=== PATIENT | female | born 1945 | race Two or more races ===

== ENCOUNTER 2016-06-03 15:00 | Inpatient (IN) | payer MEDICARE, MEDICAID ==
[~2016-06-03] VITALS: Ht 162.6 cm; Wt 94.2 kg
[2016-06-03] MEDS ORDERED: ONDANSETRON HCL 4 MG/2 ML VIAL IV ONE (15:45)
[2016-06-03] MEDS ORDERED: HYDROmorphone HCL 2 MG/ML VL IV ONE (15:45)
[2016-06-03] MEDS ORDERED: ASPirin 81 mg TAB PO ONE (15:45)
[2016-06-03 16:17] LABS: Basophils # (auto) 0 uL; Basophils % (auto) 0.5 % (0.0-2.0); DEFINITIVE VIEW TRANSMISSION; Eosinophils # (auto) 0.1 uL; Eosinophils % (auto) 1.6 % (0.0-7.0); Hemoglobin 13.3 g/dL (12.2-16.2); Lymphocytes # (auto) 1.6 uL; Lymphocytes % (auto) 20.4 % (10.0-50.0); Mean Corpuscular Hemoglobin 26.9 pg (28.0-32.0); Mean Corpuscular Hgb Conc. 32.5 g/dL (32.0-36.0); Mean Corpuscular Volume 82.7 fL (80.0-100.0); Mean Platelet Volume 9.8 fL (7.4-10.4); Monocytes # (auto) 0.3 uL; Monocytes % (auto) 3.4 % (0.0-12.0); Neutrophils # (auto) 5.7 uL; Neutrophils % (auto) 74.1 % (37.0-80.0); Platelet Count (auto) 278 10^3/uL (140-450); Red Cell Distribution Width 16.2 % (11.6-16.0); White Blood Cell 7.7 10^3/uL (4.4-10.8)
[2016-06-03 16:36] LABS: Albumin 3.9 g/dL (3.4-5.0); BUN/Creatinine Ratio 16.9; Calcium 8.5 mg/dL (8.5-10.1); Magnesium 2.2 mg/dL (1.6-2.6); Potassium 3.4 mmol/L (3.5-5.1)
[2016-06-03 16:38] LABS: Bilirubin, Total 0.5 mg/dL (0.2-1.0); Total Protein 7.4 g/dL (6.4-8.2)
[2016-06-03 17:02] LABS: B-Type Natriuretic Peptide 16.23 pg/mL (0-100)
[2016-06-03 17:04] LABS: Temperature: 21.1 C (20.0-25.0)
[2016-06-03 19:06] LABS: Platelet Estimate Adequate; RBC Morphology Normal
[2016-06-03] MEDS ORDERED: LORazepam 0.5 MG TAB PO PRN (19:15)
[2016-06-03] MEDS ORDERED: NITROGLYCERIN 0.4 MG SL TAB SL PRN (19:15)
[2016-06-03] MEDS ORDERED: POTASSIUM CHL 20 Meq TABLET PO ONE (19:15)
[2016-06-03] MEDS ORDERED: LACTULOSE 20Gm/30ML SOLN PO PRN (19:15)
[2016-06-03] MEDS: NITROGLYCERIN 0.2MG/HR TOPICAL PATCH TD SCH (19:50)
[2016-06-03] MEDS: ENOXAPARIN SOD 40 MG/0.4 ML SYRINGE SC SCH (19:50)
[2016-06-03 20:07] LABS: Temperature: 21.9 C (20.0-25.0)
[2016-06-03] MEDS: SODIUM CHLORIDE 0.9% 1,000 ML IV SCH (20:22)
[2016-06-03] MEDS: HYDROmorphone HCL 2 MG/ML VL IV PRN (20:22)
[2016-06-03] MEDS: PROMETHAZINE HCL 25 MG/ML 1ML IV PRN (20:22)
[2016-06-03 20:45] VITALS: BP 188/72
[2016-06-03] MEDS ORDERED: LEVO25TA6 PO (21:26)
[2016-06-03] MEDS ORDERED: LEVO200T46 PO (21:26)
[2016-06-03] MEDS ORDERED: ENAL5TAB92 PO (21:26)
[2016-06-03] MEDS ORDERED: PROM25TA5 PO (21:26)
[2016-06-03] MEDS ORDERED: TEMA15CA91 PO (21:26)
[2016-06-03] MEDS ORDERED: DULO60CA PO (21:26)
[2016-06-03] MEDS ORDERED: CARV6.2551 PO (21:26)
[2016-06-03] MEDS ORDERED: PANT40TA2 PO (21:26)
[2016-06-03] MEDS ORDERED: ATOR40TA52 PO (21:26)
[2016-06-03] MEDS: TEMAZEPAM 15 MG CAP PO PRN (21:50)
[2016-06-03] MEDS: METOPROLOL TARTRATE 25 MG TAB PO SCH (21:51)
[2016-06-03 22:00] VITALS: BP 188/72
[2016-06-03] MEDS ORDERED: ATORVASTATIN 20 MG TAB PO SCH (22:00)
[2016-06-04] VITALS (7 sets, daily range): BP systolic 144–168; BP diastolic 55–86
[2016-06-04] MEDS: HYDROmorphone HCL 2 MG/ML VL IV PRN ×6 (00:55→22:00)
[2016-06-04] MEDS: PROMETHAZINE HCL 25 MG/ML 1ML IV PRN ×6 (00:56→22:00)
[2016-06-04 06:22] LABS: Urine Bilirubin Negative (Negative); Urine Blood 2+ /uL (Negative); Urine Color Yellow (Yellow); Urine Glucose Normal (Normal); Urine Ketone TRACE (Negative); Urine Mucus FEW (None Seen); Urine Nitrite Negative (Negative); Urine RBC 27 /hpf (0 - 4); Urine Squamous Epithelial Cell MOD /hpf (<5)
[2016-06-04 06:41] LABS: Cholesterol 149 mg/dL (<200); HDL Cholesterol 43 mg/dL (40-59); LDL Cholesterol 85 mg/dL (<100); Triglycerides 227 mg/dL (<150)
[2016-06-04] MEDS ORDERED: LORazepam 2MG/ML-1ML VIAL IV PRN (09:00)
[2016-06-04] MEDS: SODIUM CHLORIDE 0.9% 1,000 ML IV SCH ×2 (09:13→21:31)
[2016-06-04] MEDS: ENOXAPARIN SOD 40 MG/0.4 ML SYRINGE SC SCH (09:29)
[2016-06-04] MEDS: NITROGLYCERIN 0.2MG/HR TOPICAL PATCH TD SCH (09:30)
[2016-06-04] MEDS: ASPirin 81 mg TAB PO SCH (09:30)
[2016-06-04] MEDS: METOPROLOL TARTRATE 25 MG TAB PO SCH (09:32)
[2016-06-04] MEDS ORDERED: ENALAPRIL MALEATE 10 MG TAB PO SCH (10:00)
[2016-06-04] MEDS ORDERED: NITROFURANTOIN (MONO) 100 mg CAP PO ONE (16:00)
[2016-06-04] MEDS: PANTOPRAZOLE 40 MG TAB PO SCH (16:35)
[2016-06-04] MEDS: ATORVASTATIN 20 MG TAB PO SCH (21:29)
[2016-06-04] MEDS: TEMAZEPAM 15 MG CAP PO PRN (21:29)
[2016-06-04] MEDS: NITROFURANTOIN (MONO) 100 mg CAP PO SCH (21:30)
[2016-06-04] MEDS: DULoxetine HCL 30 MG CAP PO SCH (21:30)
[2016-06-04] MEDS ORDERED: CARVEDILOL 3.125 MG TAB PO SCH (22:00)
[2016-06-04] MEDS ORDERED: PATIENTS OWN MEDICATION (Carvedilol 1 TAB) PO SCH ×2 (22:00)
[2016-06-04] MEDS ORDERED: PATIENTS OWN MEDICATION (Duloxetine Hcl (Cymbalta) 30 MG) PO SCH (22:00)
[2016-06-05] MEDS: ACETAMINOPHEN 500 MG TAB PO PRN ×2 (00:49→14:15)
[2016-06-05] MEDS: LABETALOL HCL 5 MG/ML 4ML SYRINGE IV PRN ×3 (04:04→14:05)
[2016-06-05] MEDS: HYDROmorphone HCL 2 MG/ML VL IV PRN ×5 (04:04→23:30)
[2016-06-05] MEDS: PROMETHAZINE HCL 25 MG/ML 1ML IV PRN ×5 (04:04→23:30)
[2016-06-05 05:00] VITALS: BP 137/76
[2016-06-05] MEDS: LEVOTHYROXINE SODIUM 100 MCG TAB PO SCH (05:57)
[2016-06-05] MEDS ORDERED: PATIENTS OWN MEDICATION (Levothyroxine Sodium (Synthroid) 1 TAB) PO SCH (10:00)
[2016-06-05] MEDS ORDERED: PATIENTS OWN MEDICATION (Atorvastatin Calcium 1 TAB) PO SCH ×2 (10:00)
[2016-06-05] MEDS ORDERED: PATIENTS OWN MEDICATION (Enalapril Maleate 1 TAB) PO SCH (10:00)
[2016-06-05] MEDS: SODIUM CHLORIDE 0.9% 1,000 ML IV SCH (11:13)
[2016-06-05] MEDS ORDERED: ENALAPRIL MALEATE 10 MG TAB PO ONE (12:15)
[2016-06-05] MEDS ORDERED: ENALAPRILAT 1.25 MG/ML-1ML VIAL IV PRN (12:15)
[2016-06-05 13:41] VITALS: BP 199/89
[2016-06-05] MEDS: ENOXAPARIN SOD 40 MG/0.4 ML SYRINGE SC SCH (14:05)
[2016-06-05] MEDS: NITROFURANTOIN (MONO) 100 mg CAP PO SCH ×2 (14:06→21:38)
[2016-06-05] MEDS: PANTOPRAZOLE 40 MG TAB PO SCH (14:06)
[2016-06-05] MEDS: ASPirin 81 mg TAB PO SCH (14:06)
[2016-06-05] MEDS: DULoxetine HCL 30 MG CAP PO SCH ×2 (14:06→21:37)
[2016-06-05] MEDS: METOPROLOL SUCCINATE XL 50 MG TAB PO SCH (14:06)
[2016-06-05] MEDS: ENALAPRIL MALEATE 10 MG TAB PO SCH ×2 (16:30→21:47)
[2016-06-05 17:03] VITALS: BP 192/97
[2016-06-05] MEDS: ATORVASTATIN 20 MG TAB PO SCH (21:38)
[2016-06-05] MEDS: TEMAZEPAM 15 MG CAP PO PRN (21:39)
[2016-06-05 22:00] VITALS: BP 178/70
[2016-06-06] MEDS: SODIUM CHLORIDE 0.9% 1,000 ML IV SCH ×2 (00:29→09:44)
[2016-06-06 01:00] VITALS: BP 158/93
[2016-06-06] MEDS: LABETALOL HCL 5 MG/ML 4ML SYRINGE IV PRN ×2 (01:11→16:32)
[2016-06-06 04:30] VITALS: BP 147/78
[2016-06-06] MEDS: HYDROmorphone HCL 2 MG/ML VL IV PRN ×4 (05:02→19:59)
[2016-06-06] MEDS: PROMETHAZINE HCL 25 MG/ML 1ML IV PRN ×4 (05:02→19:58)
[2016-06-06] MEDS: LEVOTHYROXINE SODIUM 100 MCG TAB PO SCH (06:24)
[2016-06-06 09:15] VITALS: BP 141/82
[2016-06-06] MEDS: ENALAPRIL MALEATE 10 MG TAB PO SCH ×2 (09:42→21:34)
[2016-06-06] MEDS: DULoxetine HCL 30 MG CAP PO SCH ×2 (09:42→21:33)
[2016-06-06] MEDS: ENOXAPARIN SOD 40 MG/0.4 ML SYRINGE SC SCH (09:43)
[2016-06-06] MEDS: NITROFURANTOIN (MONO) 100 mg CAP PO SCH ×2 (09:43→21:33)
[2016-06-06] MEDS: PANTOPRAZOLE 40 MG TAB PO SCH (09:43)
[2016-06-06] MEDS: ASPirin 81 mg TAB PO SCH (09:43)
[2016-06-06] MEDS: METOPROLOL SUCCINATE XL 50 MG TAB PO SCH (09:43)
[2016-06-06 13:24] VITALS: BP 147/63
[2016-06-06 16:32] VITALS: BP 159/105
[2016-06-06] MEDS: DEXAMETHASONE INJECTION 10 MG in D5W 5% 50 ML IV SCH (19:58)
[2016-06-06] MEDS: ATORVASTATIN 20 MG TAB PO SCH (21:33)
[2016-06-06] MEDS: METOCLOPRAMIDE HCL 10 MG TAB PO SCH (21:34)
[2016-06-06 22:00] VITALS: BP 150/83
[2016-06-07] MEDS: HYDROmorphone HCL 2 MG/ML VL IV PRN ×3 (00:01→20:32)
[2016-06-07] MEDS: PROMETHAZINE HCL 25 MG/ML 1ML IV PRN (00:10)
[2016-06-07] MEDS: SODIUM CHLORIDE 0.9% 1,000 ML IV SCH ×2 (03:01→17:35)
[2016-06-07 05:48] VITALS: BP 121/69
[2016-06-07] MEDS: LEVOTHYROXINE SODIUM 100 MCG TAB PO SCH (06:24)
[2016-06-07] MEDS: METOCLOPRAMIDE HCL 10 MG TAB PO SCH ×4 (06:24→21:53)
[2016-06-07 08:28] VITALS: BP 137/69
[2016-06-07] MEDS: ADENOSINE 80 MG in GIVE UN-DILUTED 0 ML IV ONE (08:45)
[2016-06-07] MEDS: ENALAPRIL MALEATE 10 MG TAB PO SCH ×2 (09:08→21:53)
[2016-06-07] MEDS: DULoxetine HCL 30 MG CAP PO SCH ×2 (09:08→21:52)
[2016-06-07] MEDS: NITROFURANTOIN (MONO) 100 mg CAP PO SCH ×2 (09:08→21:52)
[2016-06-07] MEDS: PANTOPRAZOLE 40 MG TAB PO SCH ×2 (09:08→21:53)
[2016-06-07] MEDS: METOPROLOL SUCCINATE XL 50 MG TAB PO SCH (09:08)
[2016-06-07] MEDS: ASPirin 81 mg TAB PO SCH (09:08)
[2016-06-07] MEDS: ENOXAPARIN SOD 40 MG/0.4 ML SYRINGE SC SCH (10:00)
[2016-06-07] MEDS: ACETAMINOPHEN 500 MG TAB PO PRN (12:13)
[2016-06-07 12:45] VITALS: BP 162/82
[2016-06-07] MEDS ORDERED: POTA10IN PO (13:51)
[2016-06-07] MEDS ORDERED: GABA300C8 PO (13:51)
[2016-06-07] MEDS ORDERED: GLIM4TAB42 PO (13:51)
[2016-06-07] MEDS ORDERED: METO-158 PO (13:51)
[2016-06-07] MEDS ORDERED: DOXE100C4 PO (13:51)
[2016-06-07] MEDS ORDERED: FURO20TA3 PO (13:51)
[2016-06-07] MEDS ORDERED: [UNRECOGNIZED DRUG - CODE] PO (13:51)
[2016-06-07] MEDS ORDERED: GEMF600T3 PO (13:51)
[2016-06-07] MEDS ORDERED: INDO50CA82 PO (13:51)
[2016-06-07] MEDS ORDERED: METF-316 PO (13:51)
[2016-06-07] MEDS ORDERED: CANA100T PO (13:51)
[2016-06-07] MEDS ORDERED: [UNRECOGNIZED DRUG - CODE] NAS (13:51)
[2016-06-07] MEDS ORDERED: FAMOTIDINE 20 MG TAB PO ONE (15:30)
[2016-06-07] MEDS ORDERED: PANTOPRAZOLE 40 MG TAB PO ONE (15:30)
[2016-06-07] MEDS ORDERED: ALUM & MAG HYDROX-SIMETH LIQ(MAALOX) 30 ML PO PRN (15:30)
[2016-06-07 16:59] VITALS: BP 167/97
[2016-06-07] MEDS: HYDROcodone-ACET 5/325MG TAB PO PRN (17:52)
[2016-06-07] MEDS: DEXAMETHASONE INJECTION 10 MG in D5W 5% 50 ML IV SCH (20:32)
[2016-06-07] MEDS: FAMOTIDINE 20 MG TAB PO SCH (21:52)
[2016-06-07] MEDS: ATORVASTATIN 20 MG TAB PO SCH (21:52)
[2016-06-07 22:00] VITALS: BP 168/85
[2016-06-07] MEDS: TEMAZEPAM 15 MG CAP PO PRN (22:01)
[2016-06-08] MEDS: PROMETHAZINE HCL 25 MG/ML 1ML IV PRN ×2 (03:08→20:54)
[2016-06-08 05:00] VITALS: BP 152/99
[2016-06-08] MEDS: LEVOTHYROXINE SODIUM 100 MCG TAB PO SCH (05:57)
[2016-06-08] MEDS: METOCLOPRAMIDE HCL 10 MG TAB PO SCH ×3 (05:57→22:13)
[2016-06-08] MEDS: SODIUM CHLORIDE 0.9% 1,000 ML IV SCH ×2 (05:58→20:42)
[2016-06-08] MEDS: HYDROmorphone HCL 2 MG/ML VL IV PRN ×3 (06:17→20:44)
[2016-06-08] MEDS: LABETALOL HCL 5 MG/ML 4ML SYRINGE IV PRN (06:17)
[2016-06-08 06:43] LABS: Basophils # (auto) 0 uL; Basophils % (auto) 0.1 % (0.0-2.0); DEFINITIVE VIEW TRANSMISSION; Eosinophils # (auto) 0 uL; Hematocrit 38.2 % (36.0-46.0); Hemoglobin 12.2 g/dL (12.2-16.2); Lymphocytes # (auto) 0.6 uL; Mean Corpuscular Hemoglobin 26.6 pg (28.0-32.0); Mean Corpuscular Volume 83.3 fL (80.0-100.0); Mean Platelet Volume 10.8 fL (7.4-10.4); Monocytes # (auto) 0 uL; Monocytes % (auto) 0.4 % (0.0-12.0); Neutrophils # (auto) 9.5 uL; Neutrophils % (auto) 93.5 % (37.0-80.0); Platelet Count (auto) 234 10^3/uL (140-450); Red Cell Distribution Width 16.2 % (11.6-16.0); White Blood Cell 10.2 10^3/uL (4.4-10.8)
[2016-06-08 07:22] LABS: Albumin 3.7 g/dL (3.4-5.0); BUN/Creatinine Ratio 21.7; Bilirubin, Total 0.5 mg/dL (0.2-1.0); Calcium 8.5 mg/dL (8.5-10.1); Potassium 3.3 mmol/L (3.5-5.1); Total Protein 6.8 g/dL (6.4-8.2)
[2016-06-08 09:00] VITALS: BP 150/91
[2016-06-08] MEDS: DULoxetine HCL 30 MG CAP PO SCH ×2 (11:01→22:14)
[2016-06-08] MEDS: ENOXAPARIN SOD 40 MG/0.4 ML SYRINGE SC SCH (11:01)
[2016-06-08] MEDS: FAMOTIDINE 20 MG TAB PO SCH ×2 (11:02→22:13)
[2016-06-08] MEDS: PANTOPRAZOLE 40 MG TAB PO SCH ×2 (11:02→22:13)
[2016-06-08] MEDS: ASPirin 81 mg TAB PO SCH (11:02)
[2016-06-08] MEDS: NITROFURANTOIN (MONO) 100 mg CAP PO SCH ×2 (11:03→22:13)
[2016-06-08] MEDS: ENALAPRIL MALEATE 10 MG TAB PO SCH ×2 (11:03→22:12)
[2016-06-08] MEDS: METOPROLOL SUCCINATE XL 50 MG TAB PO SCH (11:04)
[2016-06-08 13:00] VITALS: BP_SYST 128; BP_SYST 144; BP_DIAS 89; BP_DIAS 90
[2016-06-08 15:16] LABS: INR 1.11 (0.9-1.15); Prothrombin Time 11.4 sec (9.37-12.3)
[2016-06-08 17:00] VITALS: BP 154/76
[2016-06-08] MEDS: DEXAMETHASONE INJECTION 10 MG in D5W 5% 50 ML IV SCH (20:43)
[2016-06-08 22:00] VITALS: BP 146/70
[2016-06-08] MEDS: ATORVASTATIN 20 MG TAB PO SCH (22:13)
[2016-06-08] MEDS: TEMAZEPAM 15 MG CAP PO PRN (22:13)
[2016-06-09 05:00] VITALS: BP 164/91
[2016-06-09] MEDS: HYDROmorphone HCL 2 MG/ML VL IV PRN ×2 (05:22→10:43)
[2016-06-09] MEDS: METOCLOPRAMIDE HCL 10 MG TAB PO SCH (06:00)
[2016-06-09] MEDS: LEVOTHYROXINE SODIUM 100 MCG TAB PO SCH (06:32)
[2016-06-09] MEDS: SODIUM CHLORIDE 0.9% 1,000 ML IV SCH (08:11)
[2016-06-09 08:18] VITALS: BP 136/71
[2016-06-09] MEDS ORDERED: fentaNYL CITRATE 100 MCG/2 ML VL ONE (09:05)
[2016-06-09] MEDS ORDERED: MIDAZOLAM HCL 5 MG/ML-1ML VIAL ONE (09:05)
[2016-06-09] MEDS ORDERED: LIDOCAINE VISCOUS 2% 15ML UD ONE (09:05)
[2016-06-09] MEDS ORDERED: SODIUM CHLORIDE LOCK 10 ML ONE (09:05)
[2016-06-09] MEDS ORDERED: FLUMAZENIL 0.1 MG/ML INJ 10ML MDV IV ONE (09:06)
[2016-06-09] MEDS ORDERED: NALOXONE HCL 0.4 MG/ML VIAL ONE (09:06)
[2016-06-09] MEDS ORDERED: diphenhdrAMINE HCL 50 MG/1 ML VL ONE (09:06)
[2016-06-09] MEDS: ASPirin 81 mg TAB PO SCH (10:00)
[2016-06-09] MEDS: ENOXAPARIN SOD 40 MG/0.4 ML SYRINGE SC SCH (10:00)
[2016-06-09] MEDS: ENALAPRIL MALEATE 10 MG TAB PO SCH (10:00)
[2016-06-09] MEDS: FAMOTIDINE 20 MG TAB PO SCH (10:00)
[2016-06-09] MEDS: METOPROLOL SUCCINATE XL 50 MG TAB PO SCH (10:00)
[2016-06-09] MEDS: DULoxetine HCL 30 MG CAP PO SCH (10:00)
[2016-06-09] MEDS: NITROFURANTOIN (MONO) 100 mg CAP PO SCH (10:00)
[2016-06-09] MEDS: PANTOPRAZOLE 40 MG TAB PO SCH (10:00)
[2016-06-09] MEDS ORDERED: GASTROGRAFIN 30 ML SOL ONE (13:13)
[2016-06-09] MEDS ORDERED: IOHEXOL 300 MG/ML 100ML BOTTLE IJ ONE (16:21)
[2016-06-09 16:31] VITALS: BP 190/88
[2016-06-09 17:14] VITALS: BP 126/75
[2016-06-09] MEDS: HYDROcodone-ACET 5/325MG TAB PO PRN (17:45)
== END 2016-06-09 18:50 | disposition home or self-care (01) | DRG 313 ==
LOC: ER 15:04 → TELE-WESTW 15:05 → WEST WING 06-05 04:04 → TELE-WESTW 06-05 07:10 → WEST WING 06-08 18:13
PROVIDERS: ADMIT Internal Medicine; ATTEND Internal Medicine
PROC: 0DB68ZX Excision of Stomach, Via Natural or Artificial Opening Endoscopic, Diagnostic (ICD-10-PCS; principal; 2016-06-09 12:50)
DX: R07.89 Other chest pain (principal); N39.0 Urinary tract infection, site not specified; I11.9 Hypertensive heart disease without heart failure; K44.9 Diaphragmatic hernia without obstruction or gangrene; K29.70 Gastritis, unspecified, without bleeding; E78.5 Hyperlipidemia, unspecified; J45.909 Unspecified asthma, uncomplicated; M79.7 Fibromyalgia; E66.01 Morbid (severe) obesity due to excess calories; E87.6 Hypokalemia; G47.10 Hypersomnia, unspecified; G93.0 Cerebral cysts; I45.10 Unspecified right bundle-branch block; I70.0 Atherosclerosis of aorta; J32.0 Chronic maxillary sinusitis; H53.8 Other visual disturbances; R51 Headache; G47.30 Sleep apnea, unspecified; M47.814 Spondylosis without myelopathy or radiculopathy, thoracic region; N28.1 Cyst of kidney, acquired; M54.2 Cervicalgia; M54.5 Low back pain; Z90.49 Acquired absence of other specified parts of digestive tract; Z98.890 Other specified postprocedural states; Z82.3 Family history of stroke; Z88.0 Allergy status to penicillin; Z88.5 Allergy status to narcotic agent; Z88.8 Allergy status to other drugs, medicaments and biological substances; Z79.899 Other long term (current) drug therapy; Z68.35 Body mass index [BMI] 35.0-35.9, adult
CPT/HCPCS: 36415; 43239; 70450; 70551; 71020; 74177; 78452; 80053; 80061; 81001; 82550; 82607; 82746; 83735; 83880; 84443; 84484; 85025; 85049; 85379; 85610; 85652; 86141; 87086; 93005; 93017; 93306; 93886; 94761; 95819; 96374; 96375; G0434; J0153; J1100; J2250; J2405; J3490; J7060

== ENCOUNTER 2016-06-12 12:32 | Inpatient (IN) | payer MEDICARE, MEDICAID ==
[~2016-06-12] VITALS: Ht 165.1 cm; Wt 91.3 kg
[~2016-06-12 12:32] MED LIST: ATOR40TA52 PO; CANA100T PO; CARV6.2551 PO; DOXE100C4 PO; DULO60CA PO; ENAL5TAB92 PO; FURO20TA3 PO; GABA300C8 PO; GEMF600T3 PO; GLIM4TAB42 PO; INDO50CA82 PO; LEVO200T46 PO; LEVO25TA6 PO; METF-316 PO; METO-158 PO; PANT40TA2 PO; POTA10IN PO; PROM25TA5 PO; TEMA15CA91 PO; [UNRECOGNIZED DRUG - CODE] NAS; [UNRECOGNIZED DRUG - CODE] PO
[2016-06-12] MEDS ORDERED: SODIUM CHLORIDE 0.9% 1,000 ML IVB ONE (13:24)
[2016-06-12] MEDS ORDERED: MORPHINE SULF INJ 2 MG/ML SYRINGE 1ML IV ONE ×2 (13:30→16:15)
[2016-06-12] MEDS ORDERED: ONDANSETRON HCL 4 MG/2 ML VIAL IV ONE (13:30)
[2016-06-12 14:17] LABS: Basophils # (auto) 0 uL; Basophils % (auto) 0.2 % (0.0-2.0); DEFINITIVE VIEW TRANSMISSION; Eosinophils # (auto) 0.4 uL; Eosinophils % (auto) 4.4 % (0.0-7.0); Hematocrit 43.3 % (36.0-46.0); Hemoglobin 13.7 g/dL (12.2-16.2); Lymphocytes # (auto) 1.8 uL; Lymphocytes % (auto) 18.7 % (10.0-50.0); Mean Corpuscular Hemoglobin 26.3 pg (28.0-32.0); Mean Corpuscular Hgb Conc. 31.6 g/dL (32.0-36.0); Mean Corpuscular Volume 83.1 fL (80.0-100.0); Mean Platelet Volume 10.3 fL (7.4-10.4); Monocytes # (auto) 0.5 uL; Monocytes % (auto) 4.7 % (0.0-12.0); Neutrophils # (auto) 6.8 uL; Platelet Count (auto) 269 10^3/uL (140-450); Red Cell Distribution Width 15.8 % (11.6-16.0); White Blood Cell 9.5 10^3/uL (4.4-10.8)
[2016-06-12 14:31] LABS: INR 1.05 (0.9-1.15); Partial Thromboplastin Time 24.6 sec (22.64-33.71); Prothrombin Time 10.8 sec (9.37-12.3)
[2016-06-12 14:46] LABS: Albumin 3.4 g/dL (3.4-5.0); BUN/Creatinine Ratio 23.3; Bilirubin, Total 0.4 mg/dL (0.2-1.0); Calcium 8.3 mg/dL (8.5-10.1); Magnesium 2.1 mg/dL (1.6-2.6); Total Protein 6.4 g/dL (6.4-8.2)
[2016-06-12 14:52] LABS: Potassium 2.9 mmol/L (3.5-5.1)
[2016-06-12] MEDS ORDERED: POTASSIUM CHL 20MEQ/100ML 200 ML IV ONE (14:52)
[2016-06-12] MEDS ORDERED: POTASSIUM CHL 20MEQ/100ML 100 ML IV ONE ×3 (15:00→17:00)
[2016-06-12] MEDS ORDERED: PROMETHAZINE HCL 25 MG/ML 1ML IV ONE (16:15)
[2016-06-12] MEDS ORDERED: SODIUM CHLORIDE 0.9% 1,000 ML IV SCH (18:42)
[2016-06-12] MEDS ORDERED: ACETAMINOPHEN 325 MG TAB PO PRN (18:45)
[2016-06-12] MEDS ORDERED: DOCUSATE SOD 100 MG CAP PO PRN (18:45)
[2016-06-12] MEDS ORDERED: PROMETHAZINE HCL 6.25 MG/5 ML ORAL SYRUP PO PRN (18:45)
[2016-06-12] MEDS ORDERED: FAMOTIDINE (10MG/ML) 2ML VL IV ONE (18:45)
[2016-06-12] MEDS ORDERED: PANTOPRAZOLE SODIUM 40 MG/10 ML VIAL IV ONE (18:45)
[2016-06-12] MEDS: MORPHINE SULF INJ 2 MG/ML SYRINGE 1ML IV PRN (21:01)
[2016-06-12] MEDS: ONDANSETRON HCL 4 MG/2 ML VIAL IV PRN (21:01)
[2016-06-12] MEDS: InsuLIN REG 1unit/0.01ml Soln (100units/ml) SC SCH (21:39)
[2016-06-12] MEDS: ACCU-CHEK COMFORT CURVE STRIP VI SCH (21:39)
[2016-06-12] MEDS: TEMAZEPAM 15 MG CAP PO PRN (21:43)
[2016-06-12] MEDS: FLUTICASONE PROP NASAL SPR 0.05 % (50MCG) 16GM EACHNOSTRI SCH (21:43)
[2016-06-12] MEDS: DULoxetine HCL 30 MG CAP PO SCH (21:44)
[2016-06-12] MEDS: ATORVASTATIN 20 MG TAB PO SCH (21:44)
[2016-06-12] MEDS: POTASSIUM CHL 10 Meq TABLET PO SCH (21:44)
[2016-06-12] MEDS: GEMFIBROZIL 600 MG TAB PO SCH (21:44)
[2016-06-12] MEDS: CARVEDILOL 3.125 MG TAB PO SCH (21:44)
[2016-06-12] MEDS: METOPROLOL TARTRATE 50 MG TAB PO SCH (21:45)
[2016-06-12] MEDS: GABAPENTIN 300 MG CAP PO SCH (21:45)
[2016-06-12 22:00] VITALS: BP 143/86
[2016-06-12 22:35] LABS: Urine Bilirubin Negative (Negative); Urine Color Yellow (Yellow); Urine Glucose Normal (Normal); Urine Ketone Negative (Negative); Urine Nitrite Negative (Negative); Urine RBC 12 /hpf (0 - 4); Urine Squamous Epithelial Cell FEW /hpf (<5); Urine Urobilinogen Normal (Negative)
[2016-06-12 22:40] VITALS: BP 143/86
[2016-06-12] MEDS: HYDROcodone-ACET 5/325MG TAB PO PRN (23:00)
[2016-06-12 23:06] LABS: Urine Blood 1+ /uL (Negative)
[2016-06-13] MEDS: ONDANSETRON HCL 4 MG/2 ML VIAL IV PRN ×4 (01:12→21:20)
[2016-06-13] MEDS: MORPHINE SULF INJ 2 MG/ML SYRINGE 1ML IV PRN ×5 (01:12→21:19)
[2016-06-13 05:15] VITALS: BP 130/57
[2016-06-13 06:02] LABS: Basophils # (auto) 0.1 uL; Basophils % (auto) 0.6 % (0.0-2.0); DEFINITIVE VIEW TRANSMISSION; Eosinophils # (auto) 0.6 uL; Eosinophils % (auto) 6.5 % (0.0-7.0); Hematocrit 34.4 % (36.0-46.0); Hemoglobin 10.9 g/dL (12.2-16.2); Lymphocytes # (auto) 2.8 uL; Lymphocytes % (auto) 31.6 % (10.0-50.0); Mean Corpuscular Hemoglobin 26.7 pg (28.0-32.0); Mean Corpuscular Hgb Conc. 31.6 g/dL (32.0-36.0); Mean Corpuscular Volume 84.5 fL (80.0-100.0); Mean Platelet Volume 10.3 fL (7.4-10.4); Monocytes # (auto) 0.4 uL; Monocytes % (auto) 4.5 % (0.0-12.0); Neutrophils % (auto) 56.8 % (37.0-80.0); Platelet Count (auto) 213 10^3/uL (140-450); Red Cell Distribution Width 16.3 % (11.6-16.0); White Blood Cell 8.9 10^3/uL (4.4-10.8)
[2016-06-13] MEDS: GABAPENTIN 300 MG CAP PO SCH ×3 (06:02→21:03)
[2016-06-13] MEDS: LEVOTHYROXINE SODIUM 25 MCG TAB PO SCH (06:02)
[2016-06-13] MEDS: LEVOTHYROXINE SODIUM 100 MCG TAB PO SCH (06:02)
[2016-06-13] MEDS: ACCU-CHEK COMFORT CURVE STRIP VI SCH ×4 (06:03→21:21)
[2016-06-13] MEDS: InsuLIN REG 1unit/0.01ml Soln (100units/ml) SC SCH ×4 (06:03→21:21)
[2016-06-13 06:29] LABS: Albumin 2.8 g/dL (3.4-5.0); BUN/Creatinine Ratio 17.1; Bilirubin, Total 0.3 mg/dL (0.2-1.0); Calcium 7.7 mg/dL (8.5-10.1); Potassium 3.3 mmol/L (3.5-5.1)
[2016-06-13] MEDS ORDERED: GLIMEPIRIDE 2 MG TAB PO SCH (07:00)
[2016-06-13] MEDS ORDERED: metFORMIN HYDROCHLORIDE 500 MG TAB PO SCH (07:00)
[2016-06-13] MEDS: FAMOTIDINE (10MG/ML) 2ML VL IV SCH (08:49)
[2016-06-13] MEDS: PANTOPRAZOLE SODIUM 40 MG/10 ML VIAL IV SCH (08:50)
[2016-06-13] MEDS: CARVEDILOL 3.125 MG TAB PO SCH ×2 (08:50→21:23)
[2016-06-13] MEDS: MULTIPLE VITAMIN TAB PO SCH (08:50)
[2016-06-13] MEDS: ENALAPRIL MALEATE 2.5 MG TAB PO SCH (08:51)
[2016-06-13] MEDS: POTASSIUM CHL 10 Meq TABLET PO SCH ×2 (08:51→21:04)
[2016-06-13] MEDS: DULoxetine HCL 30 MG CAP PO SCH ×2 (08:51→21:03)
[2016-06-13] MEDS: FUROSEMIDE 20 MG TAB PO SCH (08:51)
[2016-06-13] MEDS: GEMFIBROZIL 600 MG TAB PO SCH ×2 (08:52→21:03)
[2016-06-13] MEDS: METOPROLOL TARTRATE 50 MG TAB PO SCH ×2 (08:52→21:23)
[2016-06-13 09:21] VITALS: BP 137/72
[2016-06-13] MEDS ORDERED: POTASSIUM CHL 10 Meq TABLET PO ONE (09:45)
[2016-06-13] MEDS: FLUTICASONE PROP NASAL SPR 0.05 % (50MCG) 16GM EACHNOSTRI SCH ×2 (10:00→21:23)
[2016-06-13] MEDS: Boost Glucose Control 8 Ounces PO SCH ×3 (12:00→21:23)
[2016-06-13 12:11] VITALS: BP 112/76
[2016-06-13] MEDS: D5W/SOD CHL 0.45% 1,000 ML IV SCH ×2 (12:55→22:12)
[2016-06-13 17:30] VITALS: BP 135/66
[2016-06-13] MEDS: DEXTROSE (50%) 50ML SYRG IV PRN ×4 (17:52→23:42)
[2016-06-13 19:08] LABS: Hematocrit 38.6 % (36.0-46.0)
[2016-06-13] MEDS: ATORVASTATIN 20 MG TAB PO SCH (21:03)
[2016-06-13 21:59] VITALS: BP 159/71
[2016-06-14] VITALS (16 sets, daily range): BP systolic 114–155; BP diastolic 43–83
[2016-06-14] MEDS ORDERED: DEXTROSE 10% 1,000 ML IV SCH
[2016-06-14] MEDS: DEXTROSE (50%) 50ML SYRG IV PRN ×2 (00:57→01:51)
[2016-06-14] MEDS: MORPHINE SULF INJ 2 MG/ML SYRINGE 1ML IV PRN ×6 (01:23→21:05)
[2016-06-14] MEDS: ONDANSETRON HCL 4 MG/2 ML VIAL IV PRN ×2 (01:23→05:07)
[2016-06-14] MEDS: DEXTROSE 10% 1,000 ML IV SCH ×2 (02:15→16:25)
[2016-06-14] MEDS: ACCU-CHEK COMFORT CURVE STRIP VI SCH ×20 (02:55→23:25)
[2016-06-14] MEDS: GABAPENTIN 300 MG CAP PO SCH ×3 (06:00→22:29)
[2016-06-14] MEDS: Boost Glucose Control 8 Ounces PO SCH ×4 (06:00→22:30)
[2016-06-14 06:14] LABS: BUN/Creatinine Ratio 10.6; Bilirubin, Total 0.4 mg/dL (0.2-1.0); Calcium 7.8 mg/dL (8.5-10.1); Potassium 3.8 mmol/L (3.5-5.1); Total Protein 5.6 g/dL (6.4-8.2)
[2016-06-14] MEDS: LEVOTHYROXINE SODIUM 25 MCG TAB PO SCH (06:42)
[2016-06-14] MEDS: LEVOTHYROXINE SODIUM 100 MCG TAB PO SCH (06:42)
[2016-06-14 08:27] LABS: Basophils # (auto) 0.1 uL; Basophils % (auto) 0.5 % (0.0-2.0); DEFINITIVE VIEW TRANSMISSION; Eosinophils # (auto) 0.6 uL; Eosinophils % (auto) 5.5 % (0.0-7.0); Hematocrit 36.9 % (36.0-46.0); Hemoglobin 11.5 g/dL (12.2-16.2); Lymphocytes # (auto) 1.9 uL; Lymphocytes % (auto) 17.1 % (10.0-50.0); Mean Corpuscular Hemoglobin 26.5 pg (28.0-32.0); Mean Corpuscular Hgb Conc. 31.3 g/dL (32.0-36.0); Mean Corpuscular Volume 84.8 fL (80.0-100.0); Mean Platelet Volume 10.6 fL (7.4-10.4); Monocytes # (auto) 0.8 uL; Neutrophils # (auto) 7.8 uL; Neutrophils % (auto) 69.9 % (37.0-80.0); Platelet Count (auto) 242 10^3/uL (140-450); Red Cell Distribution Width 16.2 % (11.6-16.0); White Blood Cell 11.2 10^3/uL (4.4-10.8)
[2016-06-14] MEDS: POTASSIUM CHL 10 Meq TABLET PO SCH ×2 (09:50→22:31)
[2016-06-14] MEDS: FUROSEMIDE 20 MG TAB PO SCH (09:50)
[2016-06-14] MEDS: MULTIPLE VITAMIN TAB PO SCH (09:50)
[2016-06-14] MEDS: GEMFIBROZIL 600 MG TAB PO SCH ×2 (09:50→22:29)
[2016-06-14] MEDS: DULoxetine HCL 30 MG CAP PO SCH ×2 (09:50→22:29)
[2016-06-14] MEDS: METOPROLOL TARTRATE 50 MG TAB PO SCH ×2 (09:51→22:28)
[2016-06-14] MEDS: ENALAPRIL MALEATE 2.5 MG TAB PO SCH (09:51)
[2016-06-14] MEDS: CARVEDILOL 3.125 MG TAB PO SCH ×2 (09:51→22:30)
[2016-06-14] MEDS: FAMOTIDINE (10MG/ML) 2ML VL IV SCH (09:52)
[2016-06-14] MEDS: PANTOPRAZOLE SODIUM 40 MG/10 ML VIAL IV SCH (09:52)
[2016-06-14] MEDS: FLUTICASONE PROP NASAL SPR 0.05 % (50MCG) 16GM EACHNOSTRI SCH ×3 (09:52→22:30)
[2016-06-14] MEDS: HYOSCYAMINE SULF 0.125 MG TAB PO PRN (18:33)
[2016-06-14] MEDS: TEMAZEPAM 15 MG CAP PO PRN (22:27)
[2016-06-14] MEDS: ATORVASTATIN 20 MG TAB PO SCH (22:27)
[2016-06-14] MEDS: PANTOPRAZOLE 40 MG TAB PO SCH (22:28)
[2016-06-15] VITALS (18 sets, daily range): BP systolic 100–149; BP diastolic 41–75
[2016-06-15] MEDS: ACCU-CHEK COMFORT CURVE STRIP VI SCH ×20 (00:45→22:00)
[2016-06-15] MEDS: MORPHINE SULF INJ 2 MG/ML SYRINGE 1ML IV PRN ×4 (03:16→20:11)
[2016-06-15 03:48] LABS: Basophils # (auto) 0.1 uL; DEFINITIVE VIEW TRANSMISSION; Eosinophils # (auto) 0.7 uL; Eosinophils % (auto) 9.8 % (0.0-7.0); Hematocrit 36.9 % (36.0-46.0); Hemoglobin 11.6 g/dL (12.2-16.2); Lymphocytes # (auto) 1.9 uL; Lymphocytes % (auto) 28.7 % (10.0-50.0); Mean Corpuscular Hemoglobin 26.8 pg (28.0-32.0); Mean Corpuscular Hgb Conc. 31.5 g/dL (32.0-36.0); Mean Corpuscular Volume 85.1 fL (80.0-100.0); Mean Platelet Volume 10.8 fL (7.4-10.4); Monocytes # (auto) 0.4 uL; Monocytes % (auto) 6.2 % (0.0-12.0); Neutrophils # (auto) 3.7 uL; Neutrophils % (auto) 54.3 % (37.0-80.0); Platelet Count (auto) 239 10^3/uL (140-450); Red Cell Distribution Width 16.5 % (11.6-16.0); White Blood Cell 6.8 10^3/uL (4.4-10.8)
[2016-06-15 04:10] LABS: Albumin 3.1 g/dL (3.4-5.0); Calcium 8.1 mg/dL (8.5-10.1); Potassium 3.5 mmol/L (3.5-5.1)
[2016-06-15 04:13] LABS: BUN/Creatinine Ratio 6.8
[2016-06-15 04:15] LABS: Bilirubin, Total 0.5 mg/dL (0.2-1.0); Total Protein 6.1 g/dL (6.4-8.2)
[2016-06-15] MEDS: Boost Glucose Control 8 Ounces PO SCH ×4 (06:00→22:00)
[2016-06-15] MEDS: LEVOTHYROXINE SODIUM 25 MCG TAB PO SCH (06:43)
[2016-06-15] MEDS: LEVOTHYROXINE SODIUM 100 MCG TAB PO SCH (06:44)
[2016-06-15] MEDS: GABAPENTIN 300 MG CAP PO SCH ×3 (06:44→22:24)
[2016-06-15] MEDS: HYOSCYAMINE SULF 0.125 MG TAB PO PRN (08:15)
[2016-06-15] MEDS: SODIUM CHLORIDE 0.9% 1,000 ML IV SCH (10:26)
[2016-06-15] MEDS: FLUTICASONE PROP NASAL SPR 0.05 % (50MCG) 16GM EACHNOSTRI SCH ×2 (10:26→22:22)
[2016-06-15] MEDS: FUROSEMIDE 20 MG TAB PO SCH (10:27)
[2016-06-15] MEDS: DULoxetine HCL 30 MG CAP PO SCH ×2 (10:27→22:24)
[2016-06-15] MEDS: POTASSIUM CHL 10 Meq TABLET PO SCH ×2 (10:27→22:24)
[2016-06-15] MEDS: CARVEDILOL 3.125 MG TAB PO SCH ×2 (10:27→22:26)
[2016-06-15] MEDS: METOPROLOL TARTRATE 50 MG TAB PO SCH ×2 (10:28→22:25)
[2016-06-15] MEDS: ENALAPRIL MALEATE 2.5 MG TAB PO SCH (10:28)
[2016-06-15] MEDS: GEMFIBROZIL 600 MG TAB PO SCH ×2 (10:28→22:24)
[2016-06-15] MEDS: MULTIPLE VITAMIN TAB PO SCH (10:28)
[2016-06-15] MEDS: PANTOPRAZOLE 40 MG TAB PO SCH ×2 (10:29→22:24)
[2016-06-15] MEDS: HYDROcodone-ACET 5/325MG TAB PO PRN (22:24)
[2016-06-15] MEDS: TEMAZEPAM 15 MG CAP PO PRN (22:24)
[2016-06-15] MEDS: ATORVASTATIN 20 MG TAB PO SCH (22:29)
[2016-06-16] MEDS: MORPHINE SULF INJ 2 MG/ML SYRINGE 1ML IV PRN ×3 (01:20→10:34)
[2016-06-16] MEDS: ACCU-CHEK COMFORT CURVE STRIP VI SCH ×4 (02:00→14:00)
[2016-06-16 05:12] VITALS: BP 103/63
[2016-06-16] MEDS: SODIUM CHLORIDE 0.9% 1,000 ML IV SCH (05:53)
[2016-06-16] MEDS: Boost Glucose Control 8 Ounces PO SCH ×2 (06:00→12:25)
[2016-06-16 06:23] LABS: Basophils # (auto) 0 uL; Basophils % (auto) 0.5 % (0.0-2.0); DEFINITIVE VIEW TRANSMISSION; Eosinophils # (auto) 0.6 uL; Hematocrit 35.4 % (36.0-46.0); Hemoglobin 11.5 g/dL (12.2-16.2); Lymphocytes # (auto) 1.5 uL; Lymphocytes % (auto) 18.9 % (10.0-50.0); Mean Corpuscular Hemoglobin 26.9 pg (28.0-32.0); Mean Corpuscular Hgb Conc. 32.5 g/dL (32.0-36.0); Mean Corpuscular Volume 82.9 fL (80.0-100.0); Mean Platelet Volume 11.2 fL (7.4-10.4); Monocytes # (auto) 0.6 uL; Neutrophils # (auto) 5.2 uL; Neutrophils % (auto) 65.6 % (37.0-80.0); Platelet Count (auto) 193 10^3/uL (140-450); Red Cell Distribution Width 15.9 % (11.6-16.0)
[2016-06-16] MEDS: LEVOTHYROXINE SODIUM 100 MCG TAB PO SCH (07:09)
[2016-06-16] MEDS: LEVOTHYROXINE SODIUM 25 MCG TAB PO SCH (07:10)
[2016-06-16] MEDS: GABAPENTIN 300 MG CAP PO SCH ×2 (07:11→14:00)
[2016-06-16 07:16] LABS: Albumin 3.2 g/dL (3.4-5.0); BUN/Creatinine Ratio 10.5; Bilirubin, Total 0.5 mg/dL (0.2-1.0); Calcium 8.6 mg/dL (8.5-10.1); Total Protein 6.2 g/dL (6.4-8.2)
[2016-06-16] MEDS: HYDROcodone-ACET 5/325MG TAB PO PRN ×2 (08:09→17:00)
[2016-06-16 09:24] VITALS: BP 135/91
[2016-06-16] MEDS: FLUTICASONE PROP NASAL SPR 0.05 % (50MCG) 16GM EACHNOSTRI SCH (10:00)
[2016-06-16] MEDS: DULoxetine HCL 30 MG CAP PO SCH (10:25)
[2016-06-16] MEDS: GEMFIBROZIL 600 MG TAB PO SCH (10:25)
[2016-06-16] MEDS: PANTOPRAZOLE 40 MG TAB PO SCH (10:25)
[2016-06-16] MEDS: POTASSIUM CHL 10 Meq TABLET PO SCH (10:25)
[2016-06-16] MEDS: ENALAPRIL MALEATE 2.5 MG TAB PO SCH (10:25)
[2016-06-16] MEDS: MULTIPLE VITAMIN TAB PO SCH (10:25)
[2016-06-16] MEDS: CARVEDILOL 3.125 MG TAB PO SCH (10:26)
[2016-06-16] MEDS: FUROSEMIDE 20 MG TAB PO SCH (10:26)
[2016-06-16] MEDS: METOPROLOL TARTRATE 50 MG TAB PO SCH (10:26)
[2016-06-16 13:00] VITALS: BP 136/64
[2016-06-16 15:56] VITALS: BP 136/64
[2016-06-16 16:56] VITALS: BP 137/78
== END 2016-06-16 16:57 | disposition home or self-care (01) | DRG 391 ==
LOC: EDBD 12:32 → ER 12:36 → OVERFLOW 12:37 → EAST 20:20 → ICU WEST 06-14 05:58 → WEST WING 06-15 21:26
PROVIDERS: ADMIT Internal Medicine; ATTEND Internal Medicine
DX: K29.70 Gastritis, unspecified, without bleeding (principal); E43 Unspecified severe protein-calorie malnutrition; N39.0 Urinary tract infection, site not specified; I12.9 Hypertensive chronic kidney disease with stage 1 through stage 4 chronic kidney disease, or unspecified chronic kidney disease; E66.01 Morbid (severe) obesity due to excess calories; I25.10 Atherosclerotic heart disease of native coronary artery without angina pectoris; I25.2 Old myocardial infarction; E11.22 Type 2 diabetes mellitus with diabetic chronic kidney disease; E11.649 Type 2 diabetes mellitus with hypoglycemia without coma; E83.51 Hypocalcemia; J45.909 Unspecified asthma, uncomplicated; M79.7 Fibromyalgia; E87.6 Hypokalemia; E78.5 Hyperlipidemia, unspecified; N18.2 Chronic kidney disease, stage 2 (mild); G93.0 Cerebral cysts; N28.1 Cyst of kidney, acquired; Z68.33 Body mass index [BMI] 33.0-33.9, adult; Z88.0 Allergy status to penicillin; Z88.5 Allergy status to narcotic agent; Z79.4 Long term (current) use of insulin; Z98.890 Other specified postprocedural states
CPT/HCPCS: 36415; 71010; 74176; 80053; 81001; 82150; 82270; 82947; 82962; 83036; 83690; 83735; 85014; 85018; 85025; 85049; 85610; 85730; 87081; 93005; 96361; 96374; 96375; 97116; 97530; C9113; J2405; J3480; J3490

== ENCOUNTER 2016-11-02 22:14 | Emergency (ER) | payer MEDICARE, MEDICAID ==
[~2016-11-02] VITALS: Ht 162.6 cm; Wt 99.8 kg
[~2016-11-02 22:14] MED LIST changes: -CANA100T PO; +CAR3125T OR; +DULO1CAP2 PO; +ENA10T GT; +GABA-497 PO; -GABA300C8 PO; -GLIM4TAB42 PO; +LEVO200T45 PO; -METF-316 PO; +PRO25I IM; +TEMA15CA PO
[2016-11-03 00:21] LABS: Basophils # (auto) 0.1 uL; Basophils % (auto) 0.9 % (0.0-2.0); Eosinophils # (auto) 0.3 uL; Eosinophils % (auto) 3.8 % (0.0-7.0); Hemoglobin 12.2 g/dL (12.2-16.2); Lymphocytes # (auto) 1.3 uL; Lymphocytes % (auto) 18.2 % (10.0-50.0); Mean Corpuscular Hemoglobin 27.9 pg (28.0-32.0); Mean Corpuscular Volume 84.5 fL (80.0-100.0); Mean Platelet Volume 9.4 fL (7.4-10.4); Monocytes # (auto) 0.4 uL; Neutrophils % (auto) 72.1 % (37.0-80.0); Platelet Count (auto) 264 10^3/uL (140-450); Red Cell Distribution Width 16.1 % (11.6-16.0); White Blood Cell 7.1 10^3/uL (4.4-10.8)
[2016-11-03 00:23] LABS: INR 0.95 (0.9-1.15); Partial Thromboplastin Time 23.4 sec (22.64-33.71); Prothrombin Time 10.3 sec (9.37-12.3)
[2016-11-03 00:27] LABS: Albumin 3.6 g/dL (3.4-5.0); Anion Gap 14 (5-15); BUN/Creatinine Ratio 26.2; Blood Urea Nitrogen 16 mg/dL (7-18); Calcium 8.6 mg/dL (8.5-10.1); Carbon Dioxide 22 mmol/L (21-32); Chloride 111 mmol/L (98-107); GFR African American 124 mL/min; GFR Non-African American 103 mL/min; Glucose 98 mg/dL (74-106); Magnesium 2.1 mg/dL (1.6-2.6); Potassium 3.4 mmol/L (3.5-5.1); Sodium 147 mmol/L (136-145)
[2016-11-03 00:32] LABS: B-Type Natriuretic Peptide 14.7 pg/mL (0-100); Temperature: 22.7 C (20.0-25.0)
[2016-11-03 00:34] LABS: Alkaline Phosphatase 107 U/L (45-117); Aspartate Aminotransferase 14 U/L (15-37); Bilirubin, Total 0.2 mg/dL (0.2-1.0)
[2016-11-03 02:17] LABS: Urine Bilirubin Negative (Negative); Urine Color Yellow (Yellow); Urine Glucose Normal (Normal); Urine Ketone Negative (Negative); Urine Mucus FEW (None Seen); Urine Nitrite Negative (Negative); Urine RBC 11 /hpf (0 - 4); Urine Squamous Epithelial Cell FEW /hpf (<5); Urine Urobilinogen Normal (Negative); Urine pH 6.5 (5.0-8.0)
[2016-11-03 02:18] LABS: Urine Blood 1+ /uL (Negative)
[2016-11-03] MEDS ORDERED: NALBUPHINE HCL 10 MG/1ml INJECTION IV ONE (02:30)
[2016-11-03] MEDS ORDERED: traMADol HCL 50 MG TAB PO ONE ×2 (04:15→04:45)
[2016-11-03] MEDS ORDERED: SUCCINYLCHOLINE CHLORIDE 20 MG/ML 10ML VIAL IV ONE ×7 (05:46→06:45)
[2016-11-03] MEDS ORDERED: ETOMIDATE (2MG/ML) 20ML VIAL IV ONE ×2 (05:46→06:00)
[2016-11-03] MEDS ORDERED: MIDAZOLAM DRIP 100 mg/100mL NS 100 ML IV ONE (05:53)
[2016-11-03] MEDS ORDERED: MIDAZOLAM DRIP 100 mg/100mL NS 100 ML IV SCH (05:58)
[2016-11-03] MEDS ORDERED: SODIUM CHLORIDE 0.9% 1,000 ML IV ONE (06:00)
[2016-11-03 07:12] VITALS: BP 114/74
== END 2016-11-03 07:53 | disposition short-term general hospital (02) ==
LOC: EDBD 22:14 → ER 22:16
DX: I62.01 Nontraumatic acute subdural hemorrhage (principal); G93.0 Cerebral cysts; E11.9 Type 2 diabetes mellitus without complications; E78.5 Hyperlipidemia, unspecified; J45.909 Unspecified asthma, uncomplicated; I10 Essential (primary) hypertension; Z90.49 Acquired absence of other specified parts of digestive tract
CPT/HCPCS: 31500; 36415; 51702; 70450; 71010; 72125; 80053; 81001; 83735; 83880; 84484; 85025; 85610; 85730; 93005; 94002; 96360; 99152; 99285; J0330; J7030